=== PATIENT | female | born 1955 | race Caucasian/White ===

== ENCOUNTER 2020-05-09 14:00 | Emergency (ER) | payer MEDICAID, MEDICARE ==
[~2020-05-09] VITALS: Ht 152.4 cm; Wt 64.0 kg
[2020-05-09] MEDS ORDERED: VISCOUS LIDOCAINE 2% 15 ML UDC PO ONE (14:30)
[2020-05-09] MEDS ORDERED: MAGNESIUM/ALUMINUM HYDROXIDE/SIMETHICONE 30ML UDC PO ONE (14:30)
[2020-05-09] MEDS ORDERED: ASPIRIN 81MG TABLET PO ONE ×2 (14:30→18:00)
[2020-05-09 15:29] LABS: BASOPHILS % 1.3 % (0.0-2.0); EOSINOPHILS % 9.1 % (0.0-5.0); HEMATOCRIT. 34.5 % (36.0-48.0); HEMOGLOBIN. 11.7 g/dL (12.0-16.0); LYMPHOCYTES % 30.8 % (20.0-50.0); MEAN CORPUSCULAR HEMOGLOBIN 32.1 pg (28.0-32.0); MEAN CORPUSCULAR VOLUME 94.2 fL (81.0-99.0); MEAN PLATELET VOLUME 8.7 fl (7.4-10.4); MONOCYTES % 11.5 % (2.0-8.0); NEUTROPHILS % 47.3 % (40.0-76.0); PLATELET 213 x1000/uL (130-400); RED BLOOD CELL COUNT 3.66 mill/uL (4.2-5.4); RED CELL DISTRIBUTION WIDTH 13.8 % (11.6-14.6)
[2020-05-09 15:34] LABS: CHLORIDE 104 mEq/L (98-107)
[2020-05-09 21:05] VITALS: BP 181/68
== END 2020-05-09 21:07 | disposition home or self-care (01) ==
LOC: ER 14:16 → ENRESERV 19:36 → CANRESERV 19:36 → CANBEDREQ 19:45 → ER 21:07
DX: R07.9 Chest pain, unspecified (principal); I12.0 Hypertensive chronic kidney disease with stage 5 chronic kidney disease or end stage renal disease; E11.22 Type 2 diabetes mellitus with diabetic chronic kidney disease; N18.6 End stage renal disease; Z99.2 Dependence on renal dialysis; Z79.82 Long term (current) use of aspirin
CPT/HCPCS: 36415; 71045; 80053; 83880; 84484; 85025; 93005; 99285; Z7610